=== PATIENT | female | born 1985 | race Hispanic/Latino ===

== ENCOUNTER 2016-10-19 07:42 | Inpatient (IN) | payer OTHER ==
[~2016-10-19] VITALS: Ht 149.9 cm; Wt 72.1 kg
[~2016-10-19 07:42] MED LIST: IBUP-1827 PO
[2016-10-19] MEDS ORDERED: Lactated Ringer's 1,000 ML IV PRN (08:21)
[2016-10-19] MEDS ORDERED: Oxytocin 10 Unit/mL Inj IM PRN ×2 (08:25→11:35)
[2016-10-19] MEDS ORDERED: Methylergonovine 0.2 mg/mL Inj IM PRN ×2 (08:25→11:35)
[2016-10-19] MEDS ORDERED: fentaNYL-PF 50 mCg/mL 2 mL Inj IVPUSH PRN (08:25)
[2016-10-19] MEDS ORDERED: Ondansetron 2 mg/mL 2 mL Inj IVPUSH PRN ×2 (08:25→09:05)
[2016-10-19] MEDS ORDERED: Oxytocin 30 Units/500 mL LR 30 UNITS in IV Premix 1 EACH IV PRN ×3 (08:25→11:35)
[2016-10-19] MEDS ORDERED: Hemorrhage Kit, Post Partum XX ONE ×2 (08:25→11:35)
[2016-10-19] MEDS ORDERED: Carboprost 250 mCg/mL Inj IM PRN ×2 (08:25→11:35)
[2016-10-19] MEDS ORDERED: Sodium Chloride LOK Flush 10 mL Syringe IVFLUSH PRN (08:25)
[2016-10-19 08:49] LABS: Mean Corpuscular Hemoglobin 29.6 pg (27.0-35.0)
--- NOTE | 2016-10-19 09:04 | PCM.HPANE ---
Patient Data Date of Service: Oct 19, 2016 (Exam completed 8:25) Surgeon Admitting Provider:Elizabet Gutierrez MD Attending Provider:Elizabet Gutierrez MD Primary Care Physician:Elizabet Gutierrez MD Other Provider: Reason for Visit Active Labor ACTIVE LABOR Ht/WT & BMI Body Mass Index Allergies Coded Allergies: Penicillins (Verified Allergy, Intermediate, 08/12/15) Past Anesthesia History Anesthesia History: Denies:: Abnormal Airway, Anesthesia Reactions, Difficult Intubation, Fam Anesthesia Reaction, Fam Malignant Hypertherm, Malignant Hyperthermia Diabetes History Hx Diabetes?: No MRSA MRSA: No Medications Active Scripts Ibuprofen 600 Mg [id number] Mg PO Q6H PRN For Pain #30 TABLET Ref 1 Prov:Manjinder Amezquita MD 08/13/15 History History of ENT Problems?: No HEENT History: Denies:: Abnormal Airway Difficult Intubation Denture Type: None Teeth Condition: Within Normal Limits Hx of Heart Problems?: No Cardiovascular History: Denies:: Congestive Heart Failure Hypertension Hx of Respiratory Problem?: No Respiratory History: Denies:: Tuberculosis Hx Neurologic Problems?: No Hx of GI Problems?: No Hx of Problems?: No Female Hx: Denies:: Currently (in for D&C incomplete ab) Hx Musculoskeletal Problems?: No Hx of Psycho/Social Problems?: No Hx Surgeries?: Yes Hx Any Other Health Problems?: No Other History: Denies:: Cancer Thyroid Disease History Blood Transfusions: Denies:: Blood Transfusions Hx Diabetes: No Hx Alcohol Use: NoHx Substance Use: No Smoking Status: Never Smoker Have You Smoked inLast 12 mo: No Stop/Bang Treated for Sleep Apnea?: No Do You Have a CPAP Machine?: No S-Snoring: Do You Snore Loudly: No T-Tired: feel tired, fatigued: No O-Obsered: Observed not breath: No P-Blood Pressure: treated: No B- Body Mass Index > 35 kg/m2: No A- Age over 50: No N- Neck Large Circumference: No G- Gender Male: No SAMANTHA Risk Assessment: Low Risk, <3 Yes Risk Assessment Category Category 1A: Patient has history of documented sleep apnea, and HAS NOT received any narcotic, sedative or anesthesia administration during this stay. Category 1B: Patient has history of documented sleep apnea, and HAS received any narcotic , sedative or anesthesia administration during this stay Category 2: Patient has SUSPECTED Obstructive Sleep Apnea, and HAS received any narcotic , sedative or anesthesia administration during this stay. Category 3: Patient has SUSPECTED Obstructive Sleep Apnea and HAS NOT received narcotic, sedative or anesthesia administration during this stay. Category 4: Outpatient in Procedural Areas with known sleep apnea or who screen positive for High Risk via the STOP/BANG questionnaire. Exam Exam General Appearance: Alert, Oriented X3, Cooperative, No Acute Distress HEENT/AIRWAY: MP 2 Lungs: Clear to Auscultation, Normal Air Movement Heart: Exam Unremarkable, Regular Rate/Rhythm, No Murmurs/Rubs/Gallops Meds/Labs/Diagnostics Labs Test 10/19/16 08:15 White Blood Count 9.1th/mm3 (3.8-10.1) Red Blood Count 4.29mil/mm3 (3.90-5.20) Hemoglobin 12.7g/dL (12.0-15.6) Hematocrit 38.2% (35.0-46.0) Mean Corpuscular Volume 89.0fL (81-100) Mean Corpuscular Hemoglobin 29.6pg (27.0-35.0) Mean Corpuscular Hemoglobin Concent 33.2% (32.0-37.0) Red Cell Distribution Width 13.6% (12.3-15.4) Platelet Count 292bil/L (150-400) Plan Impression Patient chart reviewed, patient interviewed and anesthestic plan with risks, benefits, and alternatives discussed, and informed consent obtained. NPO per Anesth. Guidelines: Yes ASA Physical Status: ASA1 Normal Healthy Anesthetic Plan: GA, SAB Bene/Risks/Altern/Consents: Yes HP Complete Prior to Induction: Yes Matthieu Perez MD Oct 19, 2016 09:04
[2016-10-19] MEDS ORDERED: EPHEDrine Sulfate 50 mg/mL Inj IVPUSH PRN (09:05)
--- NOTE | 2016-10-19 09:15 | PCM.HPOB ---
Subjective Date of Service: Oct 19, 2016 Referring Provider: Admitting Physician: Elizabet Gutierrez MD Primary Care Physician: Elizabet Gutierrez MD Attending Physician: Elizabet Gutierrez MD Chief Complaint Active labor at 38 weeks History of Present History of Present Illness Patient is a very pleasant 31-year-old A1 who has had regular care and has an EDC of 11/02/2016. She was measuring small for dates and I have ordered ultrasound this past week which was done on Sunday and showed appropriate growth of the baby but TRENT was 4.5 cm. Patient had been scheduled for office visit and NST today. She has been feeling good movement and has been having more sporadic contractions over the past week. She woke this morning at 5 AM in active labor with painful contractions every 2-3 minutes. She came to the center around 7 AM and was 3 cm and 80% effaced vertex presentation on arrival. She progressed to 4 cm within 30 minutes and contractions were strong and painful. heart rate baseline was in the 130s to 140s with good fygj-qq-bozj variability and good accelerations. Patient was admitted and intrathecal has just been placed. She is currently 8 cm 100% effaced, and vertex at spines. She did have spontaneous rupture of membranes within the last hour for clear fluid and has had some normal bloody show. Estimated weight is around 7 pounds and is anticipated. OB History: (5), Para (3), Term (3), Pre-term (0), ( 1), Living (3) Obstetrical Complications: None Past Medical History Obstetrical History: 1. Her first was in October 2005 and she went to 41 weeks gestational age. She had 16 hours of labor and went on to spontaneous vaginal delivery of a liveborn female weighing 6 lbs. 10 oz. She did have an epidural with that labor. She developed endometritis a week after delivery which was treated with oral antibiotics. Baby is healthy and her name is Verónica. 2. #2 was in September 2006 at 41 weeks gestational age. She had 10 hours of labor and went onto spontaneous vaginal delivery of a live born male weighing 7 lbs. 8 oz. She did have an epidural. She had a UTI with endometritis proximally one week after delivery treated with oral antibiotics. That baby was healthy and his name is Ziggy. 3. #3 was in November 2012 at 40 weeks +6 days and she had 3 hours of labor. She had spontaneous vaginal delivery of a liveborn male weighing 8 lbs. 3 oz. and she did have an epidural with that labor and delivery. was complicated by a pyogenic granuloma which was excised from her thumb in the last month of . We covered her with prophylactic antibiotics and she did not develop any endometritis or UTI. That baby was healthy and his name is Jarret. 4. Her fourth was a spontaneous at week 8 weeks gestational age she required D&C for incomplete . 5. This is her fifth and current . Gynecologic History: She has not had any history of STDs or abnormal Pap smears. She did have 2 episodes of endometritis with UTI following her first and second pregnancies. These were treated on an outpatient basis with oral antibiotics. Medical History: Patient is generally healthy. She does have multiple liver hemangiomas present and stable since 2010. She had Mckeon's palsy with complete resolution in 2011. She did have recurrent tonsillitis in 2013 but did not undergo tonsillectomy. Surgical History: She has had a D&C for incomplete and has had excision of a pyogenic granuloma on her thumb in 2012. Social History: Patient is and lives with her . She is a college graduate and is a fljv-im-crog mom. She does not smoke or drink or use illicit substances. Past Family History Family History Her father is alive and well. A paternal grandfather passed of an unknown cancer and a paternal uncle also pass of an unknown cancer. Her mother has hypertension. Genetic Screening/Counseling Genetic Screening/Counseling: Negative Baby father-had child w defect: No Review of Systems Constitutional: Y: Chills, Dizziness, Fever Eyes: Denies: Blurred Vision, Double Vision, Vision Changes ENT: Denies: Dental Problems, Nasal Congestion, Throat Pain, Ulcers/Sores in Mouth Cardiovascular: Denies: Chest Pain, Edema Respiratory: Denies: Cough Gastrointestinal: Denies: Abdominal Pain, Constipation, Heartburn, Nausea, Vomiting Genitourinary: Denies: Dysuria, Hematuria Musculoskeletal: Denies: Redness, Swelling Skin/Breasts: Denies: Bruising, Discharge Skin: Denies: Jaundice Neurological: Denies: Change in Speech, Confusion, Dizziness Psychologic: Denies: Agitation, Anxious, Apprehensive, Depression Hematologic: Denies: Adenopathy Allergy Coded Allergies: Penicillins (Verified Allergy, Intermediate, 08/12/15) Exam Vital Signs 106/71, HR 72, she is afebrile Constitutional: Well-developed, Well-nourished, Normal habitus HEENT: PERRLA, EOMI, Mucous Membr Moist/[place] Lungs: Clear to Auscultation, Clear to Percussion, Normal Air Movement Heart: Regular Rate/Rhythm, Normal S1, Normal S2, No Murmurs/Rubs/Gallops Abdomen: Gravid, Normal bowel sounds, Soft, No tenderness, No hepatosplenomegaly Lymphatic: Normal: Neck Palpation of Nodes Extremities: Pulses Palpable x4, Warm, No Edema Neurological/Psychiatric: Alert, Oriented X3, Severe Distress Neuro: Grossly Neurologically Intact Labs/Diagnostics Labs Her blood type is B+ with no abnormal antibodies. Admitting hemoglobin in the first trimester was 12.7 with hematocrit of 38%. Pap test was negative. Varicella and rubella are immune. RPR was nonreactive. Urine culture was negative. Hepatitis B surface antigen was negative. HIV is negative. Hepatitis C was less than 0.1. 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 GC chlamydia was negative. GTT was 123 and GBS was negative. Maternal Blood Type: B Hx Rho(D) Immune Globulin: No Antibody Screen: negative Group B Strep Results: Negative Previous with GBS: No Rubella: Immune Lab History: Positive for: Hx Herpes, Negative for: Hx Chicken Pox, Hx Gonorrhea, Hx HIV, Hx Syphilis OB Intrapartum Assessment/Plan Assessment Patient is a very pleasant 31-year-old at 38 weeks in active labor. Ultrasound done this week showed oligohydramnios with TRENT of 4.5 cm but appropriately grown . She has just received an intrathecal and is at 8 cm. is anticipated. GBS is negative. Problems: (1) with 38 completed weeks gestation Status: Acute ICD Code: Z3A.38 (2) Active labor Status: Acute ICD Code: [id number] (3) Oligohydramnios Status: Acute ICD Code: O41.00X0 Pain Evaluation: Adequate Pain Control Elizabet Gutierrez MD Oct 19, 2016 09:15
--- NOTE | 2016-10-19 10:03 | PCM.PNOBIP ---
Subjective Date of Service Oct 19, 2016 Delivery plan: Spontaneous Vaginal Delivery Visit History Patient is very comfortable with her intrathecal, and contractions are every 3 minutes or so, and moderate to strong intensity. She has not changed her cervix over the last hour or so, and pitocin augmentation will be started. Her bladder was just emptied of 200mls clear urine, and is anticipated. Pain Management: Epidural, Good Pain Control Activity: Other (patient resting in bed, position is being changed regularly) Group B Strep Results: Negative Rubella: Immune Blood Type: B Labs Laboratory Tests 10/19/16 08:15: White Blood Count 9.1, Red Blood Count 4.29, Hemoglobin 12.7, Hematocrit 38.2, Mean Corpuscular Volume 89.0, Mean Corpuscular Hemoglobin 29.6, Mean Corpuscular Hemoglobin Concent 33.2, Red Cell Distribution Width 13.6, Platelet Count 292 Exam Vital Signs Vital Signs Contraction frequency in minutes: MVUs: Vital Signs: VS reviewed, stable Heart Tracings Heart Tones Baseline bpm Heart Rate Variability: Moderate Heart Rate Accelleration: Present Heart Rate Deceleration: Absent Heart Rate Category: I Tocometry/IUPC Contraction frequency in minutes: MVUs: Sterile Vaginal Exam Cervical Dilation: 8 cms Cervical Effacement: 100 % Station: 0 Exam Lungs: Clear to Auscultation, Clear to Percussion, Normal Air Movement Heart: Regular Rate/Rhythm, Normal S1, Normal S2, No Murmurs/Rubs/Gallops General: Alert, Oriented X3 OB Intrapartum Assessment/Plan Assessment 31 year old in active labor at 38 weeks. Clear SROM with reassuring FHR. Intrathecal has been placed and is working well. Pitocin augmentation will be started. is anticipated. Problems: (1) with 38 completed weeks gestation Status: Acute ICD Code: Z3A.38 (2) Active labor Status: Acute ICD Code: [id number] (3) Oligohydramnios Status: Acute ICD Code: O41.00X0 Intrapartum plan: Continue expected management, Start pitocin Pain Evaluation: Adequate Pain Control Elizabet Gutierrez MD Oct 19, 2016 10:03
[2016-10-19] MEDS: Lactated Ringer's 1,000 ML IV SCH ×2 (10:20→10:21)
[2016-10-19] MEDS ORDERED: LANOlin HPA 7 Gm Ointment TOPICAL PRN (11:35)
[2016-10-19] MEDS ORDERED: Lactated Ringer's 1,000 ML IV SCH (11:35)
[2016-10-19] MEDS ORDERED: Benzocaine (Dermoplast) 20% 60 Gm Spray TOPICAL PRN (11:35)
[2016-10-19] MEDS ORDERED: Witch Hazel-Glycerin Pads TOPICAL PRN (11:35)
[2016-10-19] MEDS: HYDROcodone-APAP 5-325 mg Tablet PO PRN ×3 (12:00→23:36)
[2016-10-19] MEDS: Clindamycin Inj 900 MG in IV Premix 1 EACH IV SCH ×2 (12:19→20:18)
--- NOTE | 2016-10-19 14:33 | PCM.OBVAG ---
Vaginal Delivery Date of Service Oct 19, 2016 Pre Operative Diagnosis Pre Operative Diagnosis 1. at 38 weeks with active labor 2. Oligohydramnios 3. Intrathecal analgesia 4. of LBM infant Post Operative Diagnosis Post Operative Diagnosis 1. at 38 weeks with active labor 2. Oligohydramnios 3. Intrathecal analgesia 4. of LBM Procedure Obstetical Procedure: Normal Spontaneous Vaginal Delivery Clinical Dietitian/Slurry Control Tender Provider and Slurry Control Tender: Dr. Elizabet Coker, PGY1 Indication for Procedure Induction: Active labor, Pitocin augmentation, SROM, Progressed normally through labor Findings Obstetrical Findings: Labolt (Male), Cord (3 Vessel), Weight (6lbs 3 ounces), Presentation (Vertex), 1 minute (9), 5 minutes (9), Placenta (Intact/Normal) Analgesia/Medications Obstetrical Anesthesia: Epidural Procedure Details Procedure Details Patient is a very pleasant 31-year-old with EDC of 11/02/2016. She woke this morning at 5 AM with painful contractions have progressed over the next several hours and she came to the center shortly after 7 AM. She was 3 cm dilated on arrival and went to 4 cm in less than an hour. heart rate was reactive with baseline in the 130s to 140s in good fuvg-um-vgtt variability. She has spontaneous rupture of membranes around 08:00 hrs for clear fluid. She progressed well through labor and intrathecal analgesia was given and around 7-8 cm. Pitocin augmentation of labor was started after about an hour and she received a maximum of 4 mU/m. Her first stage of labor was a proximally 3 hours, second stage 5 minutes, and third stage was 15 minutes. Baby did develop some deep variable decelerations to 70 to 90 with some contractions as labor was progressing and he was descending. A nuchal cord was noted at delivery and this was looped over the head prior to delivery of the shoulders. Mother went onto spontaneous vaginal delivery of a live born male with weight 6 lbs. 13 oz., and Apgars of 9 at 1 minute and 9 at 5 minutes. Fluid remained clear throughout. There was normal bloody show. Baby was handed off to the maternal abdomen and delayed cord clamping was done. Mother was having recurrent small gushes of bleeding after delivery and the placenta was still just sitting in the cervical os. This was removed manually and the placenta did have a tear between the cotyledons, but appeared completely intact. There were trailing membranes, and these also appeared intact. EBL at time of delivery was around 200mls. Mother is intending to breast-feed and routine care is anticipated. Of note, her GBS status was negative. However with her first 2 babies, she developed a endometritis with UTI approximately 1 week after delivery. With baby #3, I had covered her with clindamycin during labor and delivery and sent her home on 1 week of this. Mother did very nicely with this and did not develop any infection. Her bladder had to be emptied several times just before and after delivery, and the placenta required extraction from the cervical os. I will cover her with 24 hours of IV clindamycin, then send her home with this as oral formulation as well. Mother is comfortable with this plan and is already breast -feeding. Routine care is otherwise anticipated for both mom and baby. Specimen placenta was for routine disposal Blood Loss & Administration Estimated Blood Loss: 200 Post Procedure Plan Post delivery Condition: Mom Elizabet Lujan MD Oct 19, 2016 14:33
[2016-10-20] MEDS: Clindamycin Inj 900 MG in IV Premix 1 EACH IV SCH (04:00)
[2016-10-20 07:22] LABS: Mean Corpuscular Hemoglobin 29.8 pg (27.0-35.0); Mean Corpuscular Volume 90.6 fL (81-100)
--- NOTE | 2016-10-20 10:43 | PCM.DC.OB ---
Obstetrical Discharge Summary Date of Service Oct 20, 2016 Date of hospital admission Oct 19, 2016 at 08:08 Date of Discharge: Oct 20, 2016 Providers Admitting Physician: Elizabet Gutierrez MD Primary Care Physician: Elizabet Gutierrez MD Attending Physician: Elizabet Gutierrez MD Diagnosis at Time of Discharge 1. at 38 weeks with active labor 2. Oligohydramnios with TRENT 4.5cm 3. Intrathecal analgesia 4. of LBM infant with loose loop of nuchal cord Problems: (1) with 38 completed weeks gestation Status: Acute ICD Code: Z3A.38 (2) Active labor Status: Resolved (3) Oligohydramnios Status: Resolved ICD Code: O41.00X0 (4) (spontaneous vaginal delivery) Status: Acute ICD Code: O80 Brief History and Physical: Patient is a very pleasant 31-year-old A1 who has had regular care and has an EDC of 11/02/2016. She was measuring small for dates and I have ordered ultrasound this past week which was done on Sunday and showed appropriate growth of the baby but TRENT was 4.5 cm. Patient had been scheduled for office visit and NST today. She has been feeling good movement and has been having more sporadic contractions over the past week. She woke this morning at 5 AM in active labor with painful contractions every 2-3 minutes. She came to the center around 7 AM and was 3 cm and 80% effaced vertex presentation on arrival. She progressed to 4 cm within 30 minutes and contractions were strong and painful. heart rate baseline was in the 130s to 140s with good pwan-hh-koyp variability and good accelerations. Patient was admitted and intrathecal has just been placed. She is currently 8 cm 100% effaced, and vertex at spines. She did have spontaneous rupture of membranes within the last hour for clear fluid and has had some normal bloody show. Estimated weight is around 7 pounds and is anticipated. Hospital Course: Patient is a very pleasant 31-year-old who was admitted on the morning of 10/19/2016 at 38 weeks gestational age in active labor. She has spontaneous rupture of membranes for clear fluid. She had ultrasound done 2 days prior to addition which showed an appropriately grown baby but oligohydramnios with TRENT of 4.5 cm. Mother made good progress to active labor and did receive an intrathecal. Fluid remained clear and heart rate was reactive with baseline in the 1:30 to 140s. As active labor was rapidly progressing, there were some deep variable decelerations to the 70 to 90s with good recovery to baseline that occurred with some contractions. Mother's first stage of labor was approximately 3 hour second stage is 5 minutes and third stage was 15 minutes. She mount a spontaneous vaginal delivery of a liveborn male weighing 6 lbs. 13 oz. over an intact perineum. There was a loose loop of nuchal cord that was reduced over the top of the head prior to delivery of the shoulders. Baby was handed off to the maternal abdomen and delayed cord clamping was done. Placenta was somewhat slow to deliver and was sitting in the cervical os. This was gently removed manually but was intact with trailing membranes. Estimated blood loss at time of delivery was around 200 mils. Mother was GBS negative. With patient's first 2 [place], [place], she developed endometritis as well as a UTI within a week following delivery. With baby #3, I covered her with IV clindamycin and sent her home on a week of this. With this , patient has been covered with 2 doses of IV clindamycin since delivery and I will send her home on clindamycin 300 mg 3 times a day for a week. She is breast feeding and bonding well with her baby and independent in care. Bleeding has been minimal and pain control is good. She has some tenderness and bruising in her lower back at the site of the intrathecal but this is healing well. Vital signs were reviewed and are stable. On examination she is a pleasant female no acute distress. Chest is clear throughout with normal respiratory efforts, heart sounds normal sinus rhythm with no murmurs. Rest are soft nipples intact. Fundus is firm one finger breath below the umbilicus. Her perineum is not swollen and she has moderate rubra lochia.She is well and bonding with her baby. Ibuprofen (Ibuprofen) 600 Mg Tablet 600 MG PO Q6H PRN PRN For Pain Prescribed by: KRYSTYNA VENTURA MD Disposition Home Follow-up plan please contact my office with any questions or concerns. Discharge Diet: No restrictions Discharge Activity-General: Pelvic Rest for 6 weeks, Pelvic Rest, Try not to overdue, Be up and about, Balance rest and activity, Activity as pain allows, Activity as energy allows Elizabet Gutierrez MD Oct 20, 2016 10:43
--- NOTE | 2016-10-20 10:49 | PCM.DIOB ---
Obstetrical Disch Instruction Date of Service: Oct 20, 2016 Dates of Hospitalization Date of Hospital Admission Oct 19, 2016 at 08:08 Providers Admitting Physician: Elizabet Gutierrez MD Primary Care Physician: Elizabet Gutierrez MD Attending Physician: Elizabet Gutierrez MD Discharge Diagnosis Discharge Diagnosis 1. at 38 weeks with active labor 2. Oligohydramnios 3. Intrathecal analgesia 4. of LBM infant Post Operative diagnosis 1. at 38 weeks with active labor 2. Oligohydramnios 3. Intrathecal analgesia 4. of LBM infant Problems: (1) with 38 completed weeks gestation Status: Acute ICD Code: Z3A.38 (2) Active labor Status: Resolved (3) Oligohydramnios Status: Resolved ICD Code: O41.00X0 (4) (spontaneous vaginal delivery) Status: Acute ICD Code: O80 Diet Discharge Diet: No restrictions Activity Discharge Activity-General: No restrictions, Pelvic Rest for 6 weeks, Try not to overdue, Be up and about, Balance rest and activity, Activity as pain allows , Activity as energy allows Dressing and Incisional Care Hygiene: May shower, Perineal care, Sitz bath, Dermoplast spray, Witch Lucia pads, Ice Additional Instructions Discharge Instructions Please breast-feeding every 2-3 hours and on demand more often than this if needed. Your milk should be coming in in the next 1-2 days and baby will be more satisfied been. You can top up with formula after breast-feeding if baby just will not settle and still seems hungry. Please call the office with any questions or concerns and I would like to see him early next week after the weekend. Follow Up Plan Follow-up appointment: Weeks (6) Call your provider for: Fever or Chills, Shortness of breath, Heavy vaginal bleeding, Epigastric pain, Excessive constipation, Vaginal discomfort, Red painful breasts Elizabet Gutierrez MD Oct 20, 2016 10:49
[2016-10-20] MEDS ORDERED: IBUP800T28 PO (10:51)
[2016-10-20] MEDS ORDERED: CLIN-78 PO (10:51)
[2016-10-20] MEDS ORDERED: HYDR-4003 PO (10:51)
[2016-10-20 12:54] VITALS: BP 117/74; PULSE 64; RESP 18
== END 2016-10-20 13:54 | disposition home or self-care (01) | DRG 775 ==
LOC: FBCO 07:42 → FBC 08:08
PROVIDERS: ADMIT Family Medicine; ATTEND Family Medicine
PROC: 10E0XZZ Delivery of Products of Conception, External Approach (ICD-10-PCS; principal; 2016-10-19)
DX: O41.03X0 Oligohydramnios, third trimester, not applicable or unspecified (principal); O69.82X0 Labor and delivery complicated by other cord entanglement, without compression, not applicable or unspecified; Z3A.38 38 weeks gestation of pregnancy; Z37.0 Single live birth